=== PATIENT | female | born 1985 | race Caucasian/White ===

== ENCOUNTER 2018-09-18 07:55 | Day surgery (SDC) | payer BC ==
[2018-09-13 13:52] VITALS: BMI 22.1
[~2018-09-18 07:55] MED LIST: DEXAMETHASONE SOD PHOSPHATE 10 MG/ML 1 ML VIAL IV ONE; HEPARIN SODIUM,PORCINE 5,000 UNIT/ML 1 ML VIAL SQ ONE; LACTATED RINGERS 1,000 ML IV SCH; LIDOCAINE 1% 20 ML VIAL (10MG/ML) FOR IV START INTRADERMA PRN; MIDAZOLAM (PF) 2 MG/2 ML VIAL IV PRN; ceFAZolin IN SWFI 2 GM/20 ML SYRINGE IVP ONE; fentaNYL (PF) 50 MCG/ML 2 ML AMP IV PRN
[2018-09-18] MEDS ORDERED: DEXAMETHASONE SOD PHOS (MDV) 100 MG/10 ML VIAL IV ONE (08:31)
[2018-09-18] MEDS ORDERED: ONDANSETRON 4 MG/2 ML VIAL IVP ONE (08:32)
[2018-09-18 08:42] VITALS: RESP 16
--- NOTE | 2018-09-18 09:33 | P.GSHP ---
History of Present Illness H&P Date: 09/18/18 Chief Complaint: Right upper quadrant pain, chronic cholecystitis This is a 33-year-old female who presents today for laparoscopic cholecystectomy. Patient's had chronic complaints of right quadrant pain. Her recent HIDA scan shows a diminished ejection fraction consistent with chronic cholecystitis. And bili dyskinesia. Past Medical History Additional Past Medical History / Comment(s): gallbladder sx, seasonal allergies History of Any Multi-Drug Resistant Organisms: None Reported Past Surgical History: Hysterectomy, Tubal Ligation, Uterine Ablation Past Anesthesia/Blood Transfusion Reactions: Postoperative Nausea & Vomiting ( PONV) Smoking Status: Former smoker - Past Family History Mother Family Medical History: Cancer Additional Family Medical History / Comment(s): ovarian cancer age 50 Medications and Allergies Home Medications Medication Instructions Recorded Confirmed Type No Known Home Medications 09/13/18 09/18/18 History Allergies Allergy/AdvReac Type Severity Reaction Status Date / Time bacitracin Allergy Rash/Hives Verified 09/18/18 08:15 hydromorphone [From Dilaudid] Allergy Rash/Hives Verified 09/18/18 08:15 neomycin Allergy Rash/Hives Verified 09/18/18 08:15 [From Neosporin ([id number])] nickel Allergy skin Verified 09/18/18 08:15 breakdown Penicillins Allergy Rash/Hives Verified 09/18/18 08:15 polymyxin B Allergy Rash/Hives Verified 09/18/18 08:15 [From Neosporin ([id number])] Sulfa (Sulfonamide Allergy Rash/Hives Verified 09/18/18 08:15 Antibiotics) Surgical - Exam Vital Signs Temp Pulse Resp BP Pulse Ox 98.7 F 81 16 123/72 97 09/18/18 08:31 09/18/18 08:31 09/18/18 08:31 09/18/18 08:31 09/18/18 08:31 - General well developed, well nourished, no distress - Eyes PERRL - ENT normal pinna - Neck no masses - Respiratory normal expansion - Cardiovascular Rhythm: regular - Abdomen Abdomen: soft, non tender Assessment and Plan Assessment: Chronic low cholecystitis Biliary dyskinesia We'll perform laparoscopic cholecystectomy.
[2018-09-18] MEDS ORDERED: NEOSTIGMINE 1 MG/ML 10 ML VIAL ONE (09:46)
[2018-09-18] MEDS ORDERED: MIDAZOLAM 2 MG/2 ML VIAL ONE (09:46)
[2018-09-18] MEDS ORDERED: LIDOCAINE 1% INJ 10MG/ML (20 ML MDV) ONE (09:46)
[2018-09-18] MEDS ORDERED: GLYCOPYRROLATE 0.2 MG/ML 2 ML VIAL ONE (09:46)
[2018-09-18] MEDS ORDERED: PROPOFOL 10 MG/ML 20 ML VIAL IV ONE (09:46)
[2018-09-18] MEDS ORDERED: fentaNYL (PF) 50 MCG/ML 2 ML AMP ONE (09:46)
[2018-09-18] MEDS ORDERED: ROCURONIUM BROMIDE 10 MG/ML 10 ML VIAL IV ONE (09:46)
[2018-09-18] MEDS ORDERED: BUPIVACAINE-EPI 0.5%-1:200,000 10 ML VIAL SQ ONE (10:02)
[2018-09-18 10:53] VITALS: TEMP 97.7
--- NOTE | 2018-09-18 10:55 | P.OP ---
Date of Procedure: 09/18/18 Preoperative Diagnosis: Cholecystitis Postoperative Diagnosis: Cholecystitis Procedure(s) Performed: Laparoscopic cholecystectomy Anesthesia: ASHISH Surgeon: Jai Upton Estimated Blood Loss (ml): 5 Pathology: other (Gallbladder) Condition: stable Disposition: PACU Description of Procedure: The patient was placed on the operating table. The patient received a general endotracheal tube anesthesia. The patients abdomen was prepped and draped in the usual sterile fashion. Through an infraumbilical stab incision, the fascia of the anterior abdominal wall was grasped with a pair of Kochers and then the Veress needle was placed in the peritoneal cavity. Position of the Veress needle was confirmed with positive drop test. The abdomen was then insufflated. After adequate insufflation, the 10 mm trocar was placed in the peritoneal cavity. Following this the laparoscope was placed in the peritoneal cavity. The patient was placed in the head-up, right side up position and then a 5 mm trocar was placed in the right lateral and right subcostal position under direct visualization. A 8 mm trocar was placed in the epigastric position. The gallbladder was grasped in the fundus and infundibulum. Traction on the gallbladder was placed in the lateral and the cephalad positions. The triangle of Calot was visualized.. The cystic duct was bluntly dissected until the union of the cystic duct and common bile duct was seen. The cystic duct was then divided and sealed with the Harmonic scissors. A PDS Endoloop was then placed throughout the cystic duct stump. The cystic artery divided and sealed with the Harmonic scissors. The gallbladder was then removed from the liver bed using Harmonic scissors. The gallbladder was then extracted through the epigastric port site. Operative field was checked for any bleeding spots and Harmonic scissors was used to coagulate the liver bed. The abdomen was irrigated. The trocars were removed. The skin was closed using interrupted 3-0 Vicryl suture. Dermabond dressing were applied. The patient tolerated the procedure well.
[2018-09-18] MEDS ORDERED: HYDROcodone/APAP 7.5-325MG 1 EACH TAB PO ONE (11:50)
[2018-09-18 12:24] VITALS: BP 122/73; PULSE 65
== END 2018-09-18 12:31 | disposition home or self-care (01) ==
LOC: OR 07:55
PROVIDERS: ATTEND Surgery
DX: K81.1 Chronic cholecystitis (principal); K82.8 Other specified diseases of gallbladder; Z87.891 Personal history of nicotine dependence; Z88.0 Allergy status to penicillin; Z88.2 Allergy status to sulfonamides; Z88.5 Allergy status to narcotic agent; Z88.8 Allergy status to other drugs, medicaments and biological substances
CPT/HCPCS: 88304; 47562; J2250; J1644; J2710; J2405; J2001; J3010; J1100; J2704; J0690

== ENCOUNTER 2023-12-16 06:04 | Day surgery (SDC) | payer BC, OTHER ==
--- NOTE | 2023-12-13 11:39 | P.HPIHPCON ---
History of Present Illness H&P Date: 12/13/23 Chief Complaint: stress urinary incontinence Ms. Huitron is a 38 year old with a 1-year history of stress urinary incontinence. She has tried pelvic floor exercises at home and fluid restriction with no improvement in symptoms. She also admits to rare urge incontinence when her bladder is very full during which time she cannot make it to the bathroom without an accident; this happens once every 1-2 months. She has a history of laparoscopic hysterectomy for abnormal uterine bleeding with ovaries left in situ. Post-void residual in the office with straight catheter is 5cc. Consent for Procedure: I have explained the operation/procedure to the patient, including the risks, benefits, side effects, alternative therapies (including not receiving the proposed treatment or service), the likelihood of the patient achieving his/her goals, and potential recuperation problems for the procedure/sedation/analgesia, as well as any blood products, if indicated. I also explained to the patient the risks, benefits and side effects of the alternatives, as well as the risks related to not receiving the proposed procedure, care, treatment, or services. Past Medical History Additional Past Medical History / Comment(s): gallbladder sx, seasonal allergies History of Any Multi-Drug Resistant Organisms: None Reported Past Surgical History: Hysterectomy, Tubal Ligation, Uterine Ablation Past Anesthesia/Blood Transfusion Reactions: Postoperative Nausea & Vomiting (PONV) Past Psychological History: No Psychological Hx Reported Past Alcohol Use History: Occasional Additional Past Alcohol Use History / Comment(s): smoked 19 years 1ppd quit 05/13/18 Past Drug Use History: None Reported - Past Family History Mother Family Medical History: Cancer Additional Family Medical History / Comment(s): ovarian cancer age 50 Medications and Allergies Home Medications Medication Instructions Recorded Confirmed Type Docusate [Colace] 100 mg PO BID #20 capsule 09/18/18 Rx HYDROcodone/APAP 7.5-325MG [[place] 1 tab PO Q6HR PRN 3 Days #10 tab 09/18/18 Rx 7.5-325] Allergies Allergy/AdvReac Type Severity Reaction Status Date / Time bacitracin Allergy Rash/Hives Verified 09/18/18 08:15 hydromorphone [From Dilaudid] Allergy Rash/Hives Verified 09/18/18 08:15 neomycin Allergy Rash/Hives Verified 09/18/18 08:15 [From Neosporin ([id number])] nickel Allergy skin Verified 09/18/18 08:15 breakdown Penicillins Allergy Rash/Hives Verified 09/18/18 08:15 polymyxin B Allergy Rash/Hives Verified 09/18/18 08:15 [From Neosporin ([id number])] Sulfa (Sulfonamide Allergy Rash/Hives Verified 09/18/18 08:15 Antibiotics) Surgical - Exam Focused physical exam is performed. This is a healthy-appearing female in no apparent distress. Breathing is non-labored. Abdomen is soft, non-tender. Extremities are non-tender and non-edematous. Assessment and Plan Assessment: 38 year old with JOHN her for surgical management Plan: Risks, benefits, and alternatives of TVT Midurethral Sling, Cystoscopy are discussed with the patient including risk of bleeding, infection, bladder perforation, post-operative UTI, post-operative urinary retention, mesh erosion into the vagina, and possible need for short-term indwelling brown catheter. The patient understands these risks and desires to proceed with surgery as discussed.
[2023-12-14 16:13] VITALS: BMI 32.3
[2023-12-16] MEDS: DEXAMETHASONE SOD PHOSPHATE 4 MG/ML 1 ML VIAL IV ONE (06:53)
[2023-12-16] MEDS: ONDANSETRON 4 MG/2 ML VIAL IVP ONE (06:53)
[2023-12-16] MEDS: LACTATED RINGERS 1,000 ML IV SCH (06:57)
[2023-12-16] MEDS: IV FLUID CONTINUATION 1,000 ML IV ONE (06:57)
[2023-12-16] MEDS ORDERED: fentaNYL (PF) 50 MCG/ML 2 ML AMP IV PRN (07:00)
[2023-12-16] MEDS ORDERED: NEOSTIGMINE 1 MG/ML 10 ML VIAL ONE (07:24)
[2023-12-16] MEDS ORDERED: GLYCOPYRROLATE 0.2 MG/ML 2 ML VIAL ONE (07:24)
[2023-12-16] MEDS ORDERED: SUCCINYLCHOLINE CHLORIDE 200 MG/10 ML VIAL IV ONE (07:24)
[2023-12-16] MEDS ORDERED: KETOROLAC 15 MG/ML 1 ML VIAL ONE (07:24)
[2023-12-16] MEDS ORDERED: PROPOFOL 10 MG/ML 20 ML VIAL IV ONE (07:24)
[2023-12-16] MEDS ORDERED: diphenhydrAMINE 50 MG/ML 1 ML VIAL ONE (07:24)
[2023-12-16] MEDS ORDERED: fentaNYL (PF) 50 MCG/ML 2 ML AMP ONE (07:24)
[2023-12-16] MEDS ORDERED: ROCURONIUM 10 MG/ML (5 ML VIAL) IV ONE (07:24)
[2023-12-16] MEDS ORDERED: MIDAZOLAM 2 MG/2 ML VIAL ONE (07:24)
[2023-12-16] MEDS: GENTAMICIN 400 MG in SODIUM CHLORIDE 0.9% 100 ML IVPB PRN (07:29)
[2023-12-16] MEDS: VASOPRESSIN 20 UNIT/ML 1 ML VIAL SQ ONE ×2 (07:44)
[2023-12-16] MEDS: ESTRADIOL 0.1 MG/GM VAGINAL CREAM 42.5 GM TUBE VAGINAL ONE (07:48)
[2023-12-16] MEDS: GENTAMICIN 80 MG in SODIUM CHLORIDE 0.9% 250 ML IRRIGATION ONE (07:50)
--- NOTE | 2023-12-16 08:20 | P.OP ---
Date of Procedure: 12/16/23 Preoperative Diagnosis: Stress Urinary Incontinence Postoperative Diagnosis: Same Procedure(s) Performed: Transvaginal Tape Midurethral Sling, Cystoscopy Implants: [place] [employer] TVT Sling, Lot number [id number] Anesthesia: ASHISH Surgeon: Eliana Stone Estimated Blood Loss (ml): 25 IV fluids (ml): 500 Urine output (ml): 200 Pathology: none sent Condition: stable Disposition: same day Indications for Procedure: Ms. Wade is a 38 year old with stress urinary incontinence who presents for surgical management. Risks, benefits, and alternatives to TVT Midurethral Sling, Cystoscopy are discussed with the patient including risk of bleeding, infection, bladder perforation, post-operative urinary retention, need for short-term indwelling catheter, and vaginal mesh erosion. The patient understands these risks and desires to proceed. All questions answered. Operative Findings: Normal-appearing bladder with perforation of the left sling trocar through the b ladder. This was removed and replaced without complications. Description of Procedure: The patient was taken to the operating room, where general anaesthesia was obtained. The patient was placed in the dorsal lithotomy position in Greyson stirrups, prepped,and draped in normal sterile fashion. A Parish catheter was placed into the bladder. Attention was then turned to the TVT part of the procedure. Two sites were marked on the anterior abdominal wall with a marking pen, one 1 fingerbreadth to the left and the other 1 fingerbreadth to the right of the midline, just above the pubic bone.Two sites were marked on the anterior abdominal wall with a marking pen, one 1 fingerbreadth to the left and the other 1 fingerbreadth to the right of the midline, just above the pubic bone. Attention was now turned to the vaginal field where a 18-[place] Parish catheter was already present, and the urine was drained. Retractors were used for visualization. The anterior vaginal wall over the location of the mid urethra was then injected with 1% lidocaine with epinephrine in the mid portion of the vagina and the lateral aspects heading to the inferior surface of the pubic bone bilaterally. Two Allis clamps were then placed approximately 2 cm apart with the mid portion of the Allis clamps corresponding to the mid portion of the urethra as determined by palpation of the Parish within the patient's urethra. A scalpel was then used to incise between the 2 Allis clamps, and Metzenbaum scissors were used to dissect the vaginal mucosa off the urethra heading to the inferior surface of the pubic bone bilaterally. The [employer] Fit TVT trocar coupled to the plastic introducer sheath was now placed through the right sided anterior vaginal wall channel, and the trocar was rotated through the right retropubic space with careful attention being paid to stay beneath and behind the pubic bone as it rotated through the space up to the previously made jodie on the right anterior abdominal wall. The TVT trocar was uncoupled from the introducer sheath and the sheath was tagged and left in place. The TVT trocar was now placed into the second introducer sheath and positioned within the left anterior vaginal wall channel and rotated through the left retropubic space with careful attention being paid to stay beneath and behind the pubic bone as it rotated through this site up to the previously made jodie on the left anterior abdominal wall. 70-degree cystourethroscope was used to confirm that there was no trocar placement trauma to the bladder from either side, and no trauma to the urethra. Upon insertion, the left trocar was found to have perforated the bladder. The right trocar was too proximal to the bladder. Therefore, both trocars were removed and replaced without difficulty. 70-degree cystourethroscope was again used to confirm that there was no trocar placement trauma to the bladder from either side, and no trauma to the urethra. Bilateral ureteral jets were visualized. Therefore, the bladder was drained, and the mesh was brought through the abdominal wall site. The mesh was brought to sit underneath of the urethra without any tensioning at all as determined by a hemostat used as a spacer between the urethra and the sling. The hemostat as a spacer was used to stabilize the position of the mesh as plastic sheaths were removed through the abdominal wall site. The skin wounds were closed with the use of skin glue after trimming the mesh. The vaginal wound was closed with a running stitch of 3-0 Vicryl. Hemostasis was noted to be excellent throughout, and final sponge, instrument, and needle count was noted to be correct. The patient was moved back to the preoperative holding area in stable condition having tolerated the procedure well.
[2023-12-16 08:50] VITALS: TEMP 97
[2023-12-16 09:41] VITALS: BP 110/71; PULSE 85; RESP 15
== END 2023-12-16 09:56 | disposition home or self-care (01) ==
LOC: OR 06:04
PROVIDERS: ATTEND Obstetrics & Gynecology
DX: N39.3 Stress incontinence (female) (male) (principal); Z87.891 Personal history of nicotine dependence; Z88.0 Allergy status to penicillin; Z88.1 Allergy status to other antibiotic agents; Z88.2 Allergy status to sulfonamides; Z88.5 Allergy status to narcotic agent; Z90.710 Acquired absence of both cervix and uterus
CPT/HCPCS: 57288; C1771; J2250; J0330; J1200; J1580 ×2; J1100; J2710; J0690; J2405; J3010; J1885; J2704